=== PATIENT | female | born 1945 | race Caucasian/White ===

== ENCOUNTER 2021-10-22 13:07 | Outpatient (CLI) | payer MEDICARE, SELFPAY ==
--- NOTE | 2021-10-22 13:20 | USCV_ITS ---
Domonique Crow Age: 76 Gender: F : 1945 Exam Date: 10/22/2021 13:52 Ordering Phys: Savanna Jaramillo MD Technologist: Exam Location: [facility] [place]ication: LT LEG PAIN HISTORY: Lower extremity swelling. PROCEDURES: Venous duplex imaging was performed in only the left lower extremity. The following venous structures were evaluated: common femoral vein, profunda vein, proximal portion of the greater saphenous vein, superficial femoral vein, and the popliteal vein. FINDINGS: Normal 2-D Doppler and augmentation and compressibility throughout the lower extremity venous structures. Additional imaging through the proximal calf veins also reveals no thrombus. Limited evaluation of the greater saphenous vein is patent with no thrombus. CONCLUSIONS No DVT left lower extremity. Dr. Mandy Erwin DO (Electronically Signed) Final Date: 23 October 2021 11:15 S
== END 2021-10-22 13:08 | disposition home or self-care (01) ==
LOC: RAD 13:12
PROVIDERS: PCP Family Medicine; Visit Provider Family Medicine
DX: M79.605 Pain in left leg (principal); I83.90 Asymptomatic varicose veins of unspecified lower extremity
CPT/HCPCS: 93971

== ENCOUNTER 2021-12-19 09:25 | Outpatient (CLI) | payer MEDICARE, SELFPAY ==
--- NOTE | 2021-12-19 09:30 | USCV_ITS ---
Domonique Crow Age: 76 Gender: F : 1945 Exam Date: 12/19/2021 09:59 Ordering Phys: Bipin Munguia MD (Andy) ([email or web address]) Technologist: [email or web address] Exam Location: [facility] – [place] Indication: HISTORY: Hx multiple LLE DVTs, beginning 1990. She also had a LEFT GSV ligation in [place] in 1997. She is taking anticoags ([place]) since 1997. PROCEDURES: Exam was performed in the 45 degree Reverse Trendelenberg position with Valsalva maneuver and release to elicit venous insfficiency if present. The venous duplex Doppler examination of both lower extremities was performed in the standard fashion. Bilaterally, the common femoral, superficial femoral, profunda femoral, popliteal, posterior tibial, greater saphenous veins, and the peroneal veins were identified and interrogated in the standard fashion. These veins were found to be easily compressible with spontaneous blood flow. No evidence of insufficiency or thrombus noted in the deep venous system bilaterally. Serial compression, augmentation maneuvers, and spectral Doppler flow evaluation were performed and were normal. Bilateral duplex Venous Insufficiency study of the Deep and Superficial systems was carried out according to normal protocol with the patient in the dependent position for the superficial system. Due to prior LEFT GSV ligation, 1997, the GSV distal to the SFJ does not visualize in the proximal thigh, but is reconstituted at LEFT mid thigh level. 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 Minimal insufficiency is noted in the LEFT GSV at mid and distal thigh level, also at below-knee level. FINDINGS: The veins were found to be easily compressible with spontaneous blood flow. Non pulsatile flow pattern. Left greater saphenous vein was found to be ablated, distal to the saphenofemoral junction and at the proximal segment. Significant reflux were noted at the saphenofemoral junction and at the below-knee segment of the left greater saphenous vein. CONCLUSIONS 1. No evidence of DVT in the above-mentioned identifiable veins. 2. The left greater saphenous vein appears to be ablated, distal to the saphenofemoral junction and also at the proximal segment. 3. S ignificant venous reflux of greater than 500 ms were noted at the saphenofemoral junction and also at the below-knee segment of the left greater saphenous vein. The venous segment was 0.57 cmin diameter and at a depth of 1.02 cm at the below-knee level. 4. No other significant venous refluxes were noted either in the deep or superficial veins Dr Emy Montes MD [facility] (Electronically Signed) Final Date: 23 December 2021 08:49 S
== END 2021-12-19 09:26 | disposition home or self-care (01) ==
PROVIDERS: PCP Family Medicine; Visit Provider Thoracic Surgery (Cardiothoracic Vascular Surgery)
DX: I83.90 Asymptomatic varicose veins of unspecified lower extremity (principal); I87.2 Venous insufficiency (chronic) (peripheral)
CPT/HCPCS: 93970

== ENCOUNTER → 2022-01-15 10:18 | Outpatient (BNVA) | payer MEDICARE, SELFPAY | PROVIDERS: PCP Family Medicine; Visit Provider Thoracic Surgery (Cardiothoracic Vascular Surgery) | DX: I83.813 Varicose veins of bilateral lower extremities with pain (principal) | CPT/HCPCS: 99212 ==